=== PATIENT | female | born 1945 | race Caucasian/White ===

== ENCOUNTER 2017-03-14 05:26 | Day surgery (SDC) | payer OTHER ==
[~2017-03-14] VITALS: Ht 165.1 cm; Wt 106.6 kg
--- NOTE | ~2017-03-14 | O ---
[facility] [place] [address] OPERATIVE REPORT Name: DARIELA MIX Room #: 150-7 [facility]..#: [id number] Admission: 03/14/17 Attend Phys: Alok Knott MD Discharge: Date of : 45 Report #: [id number] THIS REPORT FOR: //name// CC: Roseline Banegas DATE OF SERVICE: 03/14/2017 PREOPERATIVE DIAGNOSIS: Left knee degenerative joint changes with lateral meniscus tear and mechanical symptoms. 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 PROCEDURE: Left knee arthroscopy, partial lateral meniscectomy, chondroplasty medial femoral condyle, chondroplasty patella and trochlea. SURGEON: Alok Knott MD DATABASE OPERATOR: AKIL Mendes ANESTHETIC: General. INDICATIONS: See hospital H and P. DESCRIPTION OF PROCEDURE: After adequate general anesthesia had been obtained, the patient's left lower extremity was prepped and draped in the usual meticulous sterile fashion. Limb was exsanguinated with gravity and tourniquet inflated to 350 torr. Superomedial portal established after first infiltrating 0.5% Naropin, then making a stab incision with 11 blade. Inflow cannula placed. Knee was insufflated with fluid. Anterolateral and anteromedial portals were established utilizing the same technique. Complete diagnostic arthroscopy was performed. Medial compartment demonstrated normal meniscus, which did have grade 2 chondral wear central medial femoral condyle with unstable chondral flap. This was smoothed with a shaver. Cruciate ligaments were intact. Lateral compartment demonstrated a significant flap tear of the lateral meniscus involving the anterior horn and mid body. This was debrided with basket kylie to a stable rim. She did have grade 3 chondral wear on the tibial plateau and a small area of grade 4 posteromedially on the tibial plateau. There was a corresponding full thickness chondral defect posterior femoral condyle weightbearing surface. All the unstable chondral fragments were smoothed with a shaver. [address] [address] OPERATIVE REPORT Name: DARIELA MIX [place] Room #: 150-7 [facility].#: [id number] Admission: 03/14/17 Attend Phys: Alok Knott MD Discharge: Date of : 45 Report #: [id number] Patellofemoral compartment demonstrated grade 2 chondromalacia along the median ridge extending both to the medial and lateral facets. This was smoothed with a shaver. She also had grade 2 and grade 3 changes along the trochlear sulcus, which was debrided with a shaver down to a stable base. At this time, the knee was irrigated copiously, 0.5% Naropin infiltrated into the knee. The portals were closed with 4-0 nylon. Sterile compressive dressing applied. Tourniquet deflated. By: 1225 [id number] Alok Knott MD /rachel
[~2017-03-14 05:26] MED LIST: ACIPHEX 20 MG T20 MG PO; APAP500 PO; APAP650 PO; ASPIRIN EC81 M1 PO; CARAFATE 1 GM TA1 G1 PO; ELMIRON 100 MG100 M1 PO; FISH OIL 1,2001 EAC3 PO; GLUCOSAMINE CH1 EA10 PO; JANUVIA100 MG PO; KEFLEX500 MG PO; LIPITOR 20 MG T20 M1 PO; MECLIZINE 25 MG25 M1 PO; METOPROLOL SUCC50 MG PO; MULTIPLE VITAM1 EAC2 PO; PROBIOTIC1 EAC1 PO; PROTONIX40 M1 PO; PROVENTIL HFA6.7 G1 INH; QUINU10 PD PO; TOPROL XL25 MG PO; ZOCOR 20 MG TAB20 M1 PO; ZOFRAN8 MG PO
[2017-03-14 09:46] VITALS: BP 148/77
[2017-03-14 12:51] VITALS: BP 148/77
== END 2017-03-14 14:55 | disposition home or self-care (01) ==
LOC: TBA 05:26 → OR 05:26
DX: M23.242 Derangement of anterior horn of lateral meniscus due to old tear or injury, left knee (principal); M94.262 Chondromalacia, left knee; I10 Essential (primary) hypertension; E78.5 Hyperlipidemia, unspecified; K21.9 Gastro-esophageal reflux disease without esophagitis; Z95.0 Presence of cardiac pacemaker; Z79.899 Other long term (current) drug therapy; Z98.890 Other specified postprocedural states; Z87.442 Personal history of urinary calculi; Z90.49 Acquired absence of other specified parts of digestive tract; Z90.710 Acquired absence of both cervix and uterus; Z88.6 Allergy status to analgesic agent; Z79.82 Long term (current) use of aspirin
CPT/HCPCS: 50010; 50101; 50405; 51038; 54170; 56526; 62110; 62900; 70005

== ENCOUNTER → 2017-07-05 | Outpatient (CLI) | payer OTHER ==
[~2017-07-05] VITALS: Ht 165.1 cm; Wt 105.2 kg
[~2017-07-05] MED LIST changes: +FLORASTOR250 MG PO
--- NOTE | ~2017-07-05 | H ---
[facility] [place] [address] HISTORY AND PHYSICAL Name: DARIELA MIX Room #: REG [facility]#: [id number] Admission: 07/05/17 Attend Phys: Alejandro Coreas MD Discharge: Date of : 45 Report #: [id number] THIS REPORT FOR: //name// CC: Roseline Coreas DATE OF SERVICE: 07/05/2017 REASON FOR HISTORY AND PHYSICAL: The patient's pacemaker is at the elective replacement interval. HISTORY OF PRESENT ILLNESS: The patient is a 71-year-old female with history of heart block, status post pacemaker in 2007. She also has a history of fractured atrial and ventricular leads that were replaced, but the leads were not extracted. She also has mild aortic stenosis, EF of 50-55% based on echo in 05/2016 and mild CAD on a prior catheterization, her device at the elective replacement interval. REVIEW OF SYSTEMS: A 12-point review of systems was performed today and was negative other than what I mentioned above. PAST MEDICAL HISTORY: As mentioned above. SOCIAL HISTORY: Does not smoke. FAMILY HISTORY: Noncontributory. ALLERGIES: INCLUDE CODEINE. MEDICATIONS: Have been reviewed and are unchanged from my prior H and P. PHYSICAL EXAMINATION: VITAL SIGNS: Temperature is 37.0, pulse 81, respirations 16, blood pressure 146/86, sats 96%. GENERAL: She is in no acute distress. HEENT: Oropharynx is clear. NECK: Supple, no thyromegaly. HEART: Regular rate and rhythm. LUNGS: Clear to auscultation bilaterally. ABDOMEN: Soft, nontender, nondistended, with no hepatosplenomegaly. EXTREMITIES: There is no clubbing, cyanosis, edema. NEUROLOGIC: Cranial nerves 2-12 are intact. LABORATORY DATA: White count is 5.9, hemoglobin is 13.6, platelets are 195. INR is 1.3, potassium is 3.8, creatinine 0.8. AST, ALT, alkaline phosphatase [address] [address] HISTORY AND PHYSICAL Name: DARIEAL MIX Room #: REG [facility].#: [id number] Admission: 07/05/17 Attend Phys: Alejandro Coreas MD Discharge: Date of : 45 Report #: [id number] normal. ASSESSMENT AND PLAN: In summary, the patient is a 71-year-old whose pacemaker is at the elective replacement interval. She is here for generator exchange. The risks and benefits have been reviewed. She understands this and is willing to proceed. <ELECTRONICALLY SIGNED> By: Alejandro Coreas MD 07/07/17 1406 0811 0822 Alejandro Coreas MD /nt
--- NOTE | ~2017-07-05 | P ---
[facility] [place] [address] PROCEDURE REPORT Name: DARIELA MIX Room #: REG [facility].#: [id number] Admission: 07/05/17 Attend Phys: Alejandro Coreas MD Discharge: Date of : 45 Report #: [id number] THIS REPORT FOR: //name// CC: Roseline Coreas PREOPERATIVE DIAGNOSIS: Pacemaker elective replacement indicator. POSTOPERATIVE DIAGNOSIS: Pacemaker elective replacement indicator. HISTORY: The patient is a 71-year-old female with a history of complete heart block, status post pacemaker implantation with prior fractured leads with implantation of new atrial and ventricular leads whose device is currently at the elective replacement interval and is here for a generator exchange. ANESTHESIA: The patient underwent MAC anesthesia with no anesthesia related complications. PROCEDURE: The patient underwent informed consent. We discussed the details of the procedure including the risks, which include but not limited to bleeding, infection, need for possible lead revision. She understood these risks and is willing to proceed. As such, she was brought to the EP laboratory in a fasting and unsedated state, prepped and draped in a sterile fashion and received IV antibiotics prior to initiation of the procedure. Next, I injected lidocaine at the prior incision site. The incision was opened and the device was removed from the pocket. The leads were tested and found to be functioning normally and the new device was connected to the preexisting leads. The device was placed in the pocket and the pocket was irrigated with vancomycin solution. Then, the pocket was closed in 3 layers using 2-0 for the deep layer, 3-0 for the middle layer and 4-0 for the subcuticular. Surgical glue was placed to the outer skin layer. There were no complications and no significant bleeding. The patient awoke neurologically and hemodynamically intact. The explanted generator was a [employer] model # CD6458, serial #[id number], originally implanted back on 11/10/2008. The newly implanted device was a [employer] model # NO4900, serial #[id number]. The atrial lead is a [employer] model #4076, serial #[id number]. This lead demonstrates a P-wave of 3.5 millivolts, pacing impedance of 410 ohms and a pacing threshold 0.5 volts at 0.4 milliseconds. The RV lead is a [employer], model #2088TC, 52 cm, serial #[id number]. This lead demonstrates no underlying R waves, pacing impedance of 430 ohms and pacing threshold of 0.8 volt at 0.4 milliseconds. The patient has 2 abandoned leads. One is a [employer] model #1688TC, serial #[id number] implanted in 2005. The RV lead is a [employer] model #1688TC, 52 cm, serial #[id number]. This lead was also implanted in 2005 and is capped. The most recent atrial lead was implanted in November of 2010 and RV lead was implanted in 2009. The device is programmed to the DDD 60-[address] [address] PROCEDURE REPORT Name: DARIELA MIX [facility] [id number] Admission: 07/05/17 Attend Phys: Alejandro Coreas MD Discharge: Date of : 45 Report #: [id number] CONCLUSIONS: 1. Successful pacemaker generator exchange set. 2. Satisfactory atrial and ventricular pacing and sensing thresholds. <ELECTRONICALLY SIGNED> By: Alejandro Coreas MD 07/07/17 1407 1112 1251 Alejandro Coreas MD /nt
[2017-07-05 07:26] VITALS: BP 146/86
[2017-07-05 07:26] LABS: ABSOLUTE NEUTROPHILS 4.6 thou/uL (1.4-8.2); BASOPHILS 0.4 % (0.0-2.0); EOSINOPHILS 1.7 % (0.0-3.0); HEMATOCRIT 40.3 % (37.0-47.0); HEMOGLOBIN 13.6 gm/dL (12.0-15.0); LYMPHOCYTES 13.4 % (24.0-44.0); MCH 31.1 pg (26.0-34.0); MCHC 33.7 g/dL (28.0-37.0); MCV 92.2 fL (80.0-100.0); MONOCYTES 7.1 % (1.0-8.0); PLATELET COUNT 195 thou/uL (150-400); POLYS 77.4 % (36.0-66.0); RBC 4.37 mil/uL (4.20-5.00); RDW 14.3 % (10.5-14.5); WBC 5.9 thou/uL (4.0-11.0)
[2017-07-05 07:37] LABS: CREATININE 0.8 mg/dL (0.6-1.0); POTASSIUM 3.8 mmol/L (3.5-5.1)
[2017-07-05 07:45] LABS: ALBUMIN 3.6 g/dL (3.4-5.0); TOTAL BILIRUBIN 0.7 mg/dL (<0.1-1.0); TOTAL PROTEIN 7.3 g/dL (6.4-8.2)
[2017-07-05 07:54] LABS: APTT 25.7 Seconds (24.5-32.8); INR 1.3; PROTIME 13.1 Seconds (9.3-11.4)
== END | disposition home or self-care (01) ==
LOC: EDSTATUS 06:40 → CATH 06:43
PROVIDERS: Internal Medicine Cardiovascular Disease
DX: Z45.010 Encounter for checking and testing of cardiac pacemaker pulse generator [battery] (principal); I10 Essential (primary) hypertension; E11.9 Type 2 diabetes mellitus without complications; E78.5 Hyperlipidemia, unspecified; G47.33 Obstructive sleep apnea (adult) (pediatric); K21.9 Gastro-esophageal reflux disease without esophagitis; E66.09 Other obesity due to excess calories; H81.10 Benign paroxysmal vertigo, unspecified ear; Z82.49 Family history of ischemic heart disease and other diseases of the circulatory system; Z90.710 Acquired absence of both cervix and uterus; Z90.49 Acquired absence of other specified parts of digestive tract; Z98.890 Other specified postprocedural states; Z87.19 Personal history of other diseases of the digestive system; Z87.442 Personal history of urinary calculi; Z88.8 Allergy status to other drugs, medicaments and biological substances; Z79.82 Long term (current) use of aspirin; Z79.899 Other long term (current) drug therapy; Z79.01 Long term (current) use of anticoagulants
CPT/HCPCS: 62110; 62900; 70005

== ENCOUNTER 2018-07-10 08:42 | Emergency (ER) | payer OTHER ==
[~2018-07-10] VITALS: Ht 165.1 cm; Wt 108.9 kg
[2018-07-10 12:10] VITALS: BP 155/65
== END 2018-07-10 12:18 | disposition home or self-care (01) ==
LOC: ER 08:42
DX: S62.631A Displaced fracture of distal phalanx of left index finger, initial encounter for closed fracture (principal); I10 Essential (primary) hypertension; E78.5 Hyperlipidemia, unspecified; E11.9 Type 2 diabetes mellitus without complications; Z95.0 Presence of cardiac pacemaker; G47.30 Sleep apnea, unspecified; K21.9 Gastro-esophageal reflux disease without esophagitis; Z87.442 Personal history of urinary calculi; Z88.5 Allergy status to narcotic agent; Z90.49 Acquired absence of other specified parts of digestive tract; Z90.710 Acquired absence of both cervix and uterus; Z98.890 Other specified postprocedural states; W23.1XXA Caught, crushed, jammed, or pinched between stationary objects, initial encounter; Y92.89 Other specified places as the place of occurrence of the external cause; Y93.89 Activity, other specified; Y99.8 Other external cause status

== ENCOUNTER → 2018-08-13 | Outpatient (CLI) | payer OTHER | LOC: CAT 09:04 | DX: I25.10 Atherosclerotic heart disease of native coronary artery without angina pectoris (principal); J84.10 Pulmonary fibrosis, unspecified; M47.814 Spondylosis without myelopathy or radiculopathy, thoracic region; M41.84 Other forms of scoliosis, thoracic region; Z95.810 Presence of automatic (implantable) cardiac defibrillator ==

== ENCOUNTER → 2018-08-22 | Outpatient (CLI) | payer OTHER ==
[2018-08-22 08:19] LABS: CREATININE 0.6 mg/dL (0.6-1.0)
--- NOTE | 2018-08-29 11:33 | PFR/MVV ---
[facility] [place] [address] PULMONARY FUNCTION MVV/REPORT Name: DARIELA MIX Room #: REG [facility]#: [id number] ������������������ Admission: 08/22/18 ������������������ Attend Phys: Joss Nogueira MD, [facility] Discharge: ������������������ Date of : 45 Report #: [id number] THIS REPORT FOR: //name// COPIES FOR: AGE:������ 72 SEX/RACE:� F/C >> SPIROMETRY: (BTPS) Height: 60 in cm Weight: 244 lbs kg Exam Date: 08/22/18 PRE-RX POST-RX PRED BEST %PRED BEST %PRED %CHG FVC LITERS . 2.43 . 2.60 . 107 . 2.90 . 119 . 12 FEV1 LITERS . 1.82 . 2.07 . 114 . 2.40 . 132 . 16 FEV1/FVC % . 76 . 80 . 106 . 83 . 110 . 4 SHW85-03% L/Sec . 1.57 . 2.18 . 139 . 2.89 . 184 . 32 PEF L/SEC . 4.87 . 6.90 . 142 . 6.82 . 140 . -1 FEF50/FIF50 UNITLESS . . . . 13.50 . . MVV L/Min . . 54 . f 1/Min . . 85 . >> LUNG VOLUMES: (BTPS) PRE-RX POST-RX PRED AVG %PRED AVG %PRED %CHG VC Liters . . 2.60 . . . . TLC Liters . . . . . . RV Liters . . . . . . RV/TLC % . . . . . . FRC PL Liters . . 2.79 . . . . FRC N2 Liters . . . . . . ERV Liters . . . . . . IC Liters . . . . . . >> DIFFUSION: DLCO ml/Min/mmHg . . 14.5 . . . . DL Bernie ml/Min/mmHg . . 14.5 . . . . DLCO/VA ml/Min/mmHg . . 4.07 . . . . VA Liters . . 3.56 . . . . [facility] [address] [place] [address] PULMONARY FUNCTION MVV/REPORT Name: DARIELA MIX Room #: [facility]#: [id number] ������������������ Admission: 08/22/18 ������������������ Attend Phys: Joss Nogueira MD, [facility] Discharge: ������������������ Date of : 45 Report #: [id number] COMMENTS: COMMENTS: >> RESISTANCE: PRE-RX PRED AVG %PRED Raw Total cmH20/L/Sec . . 2.75 . Raw Insp cmH20/L/Sec . . 2.37 . Raw Exp cmH20/L/Sec . . 2.75 . Raw cmH20/L/Sec . . 2.39 . Gaw L/Sec/cmH20 . . 0.419 . sRaw cmH20 Sec . . 8.33 . sGaw l/cmH20 Sec . . 0.120 . Vtq Liters . . 3.49 . # = OUTSIDE 95% CONFIDENCE INTERVAL CALIBRATION: PRED: 3.00 ACTUAL: EXP 3.01 INSP 3.02 [facility]-OL10-06 [facility]-05 N-1804-4 >> INTERPRETATION/IMPRESSION: CC: Roseline Nogueira DATE OF SERVICE: 08/22/2018 SPIROMETRY: FEV1 is 2.07 liters (114%). FVC is 2.60 liters (107%). FEV1/FVC ratio is 80%. Postbronchodilator therapy with significant response to bronchodilator therapy, FEV1 increased to 2.40 liters (16% change), FVC increased to 2.90 liters (12% change). IMPRESSION: Spirometry is suggestive of normal pulmonary function. There is a significant response to bronchodilator therapy. ��������������������������������������������� <ELECTRONICALLY SIGNED> ���������������������������������������� By: Kannan Barker MD ��������������������������������������������� 08/29/18 1133 Kannan Barker MD /nt
== END ==
LOC: CAT 07:39
PROVIDERS: Internal Medicine
DX: R06.02 Shortness of breath (principal)

== ENCOUNTER → 2018-09-12 | Outpatient (CLI) | payer OTHER | LOC: RAD 11:47 | DX: J98.4 Other disorders of lung (principal); I87.8 Other specified disorders of veins ==

== ENCOUNTER → 2018-09-14 | Outpatient (CLI) | payer OTHER ==
[2018-09-14 09:18] LABS: CREATININE 0.6 mg/dL (0.6-1.0)
== END ==
LOC: CAT 08:25
PROVIDERS: Pediatrics
DX: G31.9 Degenerative disease of nervous system, unspecified (principal); Z95.0 Presence of cardiac pacemaker; Z88.8 Allergy status to other drugs, medicaments and biological substances

== ENCOUNTER → 2019-09-12 | Outpatient (CLI) | payer OTHER | LOC: SJCVCIMAG 08:25 | PROVIDERS: ATTEND Internal Medicine | DX: Z45.018 Encounter for adjustment and management of other part of cardiac pacemaker (principal); I08.3 Combined rheumatic disorders of mitral, aortic and tricuspid valves; I11.9 Hypertensive heart disease without heart failure; R94.31 Abnormal electrocardiogram [ECG] [EKG]; I25.10 Atherosclerotic heart disease of native coronary artery without angina pectoris; I48.0 Paroxysmal atrial fibrillation; E78.5 Hyperlipidemia, unspecified; G47.33 Obstructive sleep apnea (adult) (pediatric); E11.9 Type 2 diabetes mellitus without complications; Z79.899 Other long term (current) drug therapy ==

== ENCOUNTER → 2020-03-10 | Outpatient (CLI) | payer OTHER | LOC: SJCVC 10:23 | PROVIDERS: ATTEND Internal Medicine | DX: R94.31 Abnormal electrocardiogram [ECG] [EKG] (principal); I44.7 Left bundle-branch block, unspecified; I48.0 Paroxysmal atrial fibrillation; I25.10 Atherosclerotic heart disease of native coronary artery without angina pectoris; I10 Essential (primary) hypertension; I35.0 Nonrheumatic aortic (valve) stenosis; E78.5 Hyperlipidemia, unspecified; E11.9 Type 2 diabetes mellitus without complications; Z79.899 Other long term (current) drug therapy ==

== ENCOUNTER → 2020-09-08 | Outpatient (CLI) | payer OTHER | LOC: SJCVCIMAG 08:15 | PROVIDERS: ATTEND Internal Medicine | DX: I08.3 Combined rheumatic disorders of mitral, aortic and tricuspid valves (principal); I27.20 Pulmonary hypertension, unspecified; I11.9 Hypertensive heart disease without heart failure; R94.31 Abnormal electrocardiogram [ECG] [EKG]; I49.1 Atrial premature depolarization; I48.0 Paroxysmal atrial fibrillation; I25.10 Atherosclerotic heart disease of native coronary artery without angina pectoris; E78.5 Hyperlipidemia, unspecified; G47.33 Obstructive sleep apnea (adult) (pediatric); E11.9 Type 2 diabetes mellitus without complications; Z95.0 Presence of cardiac pacemaker; Z90.49 Acquired absence of other specified parts of digestive tract; Z90.710 Acquired absence of both cervix and uterus; Z88.5 Allergy status to narcotic agent; Z79.899 Other long term (current) drug therapy ==

== ENCOUNTER → 2021-03-01 | Outpatient (CLI) | payer OTHER | LOC: SJCVC 13:04 | PROVIDERS: ATTEND Internal Medicine | DX: R94.31 Abnormal electrocardiogram [ECG] [EKG] (principal); I48.0 Paroxysmal atrial fibrillation; I25.10 Atherosclerotic heart disease of native coronary artery without angina pectoris; I35.0 Nonrheumatic aortic (valve) stenosis; I10 Essential (primary) hypertension; E78.5 Hyperlipidemia, unspecified; G47.33 Obstructive sleep apnea (adult) (pediatric); E11.9 Type 2 diabetes mellitus without complications; Z79.899 Other long term (current) drug therapy; Z88.5 Allergy status to narcotic agent; Z72.89 Other problems related to lifestyle ==